=== PATIENT | male | born 1960 | race Two or more races ===

== ENCOUNTER 2022-11-23 10:47 | Emergency (ER) | payer OTHER ==
[2022-11-23 11:02] VITALS: BP 138/88; PULSE 72; RESP 18; TEMP 98.8; BMI 31.3
== END 2022-11-23 13:04 | disposition home or self-care (01) ==
LOC: JERFT 10:47
PROC: 0HQGXZZ Repair Left Hand Skin, External Approach (ICD-10-PCS; principal; 2022-11-23)
DX: S61.512A Laceration without foreign body of left wrist, initial encounter (principal); W31.1XXA Contact with metalworking machines, initial encounter; Y99.0 Civilian activity done for income or pay
CPT/HCPCS: 99283-25